=== PATIENT | male | born 1955 | race Caucasian/White ===

== ENCOUNTER 2017-03-17 16:47 | Emergency (ER) | payer BC ==
[~2017-03-17] VITALS: Ht 170.2 cm; Wt 100.0 kg
[~2017-03-17 16:47] MED LIST: ATENOLOL25 MG PO; ERYTHROMYC1 APPLICAT RIGHT EYE
[2017-03-17 18:16] LABS: HEMATOCRIT 44.4 % (38.0-50.0); HEMOGLOBIN 14.8 G/DL (12.5-16.6); MCH 30.2 PG (29.0-34.0); MCHC 33.3 G/DL (30.0-36.0); MCV 90.6 FL (86-99); PLATELET COUNT 315 K/uL (156-360); WHITE BLOOD COUNT 10.9 K/uL (4.1-10.2)
[2017-03-17 18:29] LABS: CHLORIDE 104 mEq/L (99-109); POTASSIUM 4.3 mEq/L (3.7-5.4); SODIUM 139 mEq/L (136-147)
[2017-03-17 18:31] LABS: GLUCOSE 120 mg/dL (70-99)
[2017-03-17 18:35] LABS: CREATININE 0.8 mg/dL (0.6-1.3); GFR ESTIMATE (CALCULATED) > 59 mL/min/ (58.99-99999)
[2017-03-17 18:36] LABS: UREA NITROGEN (BUN) 22 mg/dL (9-23)
[2017-03-17 18:41] LABS: TROP-I INTERPRETATION NEGATIVE; TROPONIN-I < 0.01 ng/mL (0.0-0.30)
[2017-03-17 20:55] LABS: TROP-I INTERPRETATION NEGATIVE; TROPONIN-I < 0.01 ng/mL (0.0-0.30)
[2017-03-17 22:10] VITALS: BP 140/67
== END 2017-03-17 22:11 | disposition home or self-care (01) ==
LOC: RME 16:47 → EME 16:47 → RME 22:11
PROVIDERS: Emergency Medicine
DX: R07.89 Other chest pain (principal); E78.5 Hyperlipidemia, unspecified; I10 Essential (primary) hypertension; R73.03 Prediabetes
CPT/HCPCS: 71046; 80048; 84484; 85027; 93005; 99281; 99283